=== PATIENT | female | born 1970 | race Caucasian/White ===

== ENCOUNTER 2019-11-27 07:24 | Day surgery (SDC) | payer OTHER, SELFPAY ==
--- NOTE | 2019-11-24 11:53 | HO.ANESPROP2 ---
HPI - Anesthesia Eval Consult details Narrative: 49yo F for LEFT hammer toe PMFSH Past Medical History Medical History Asthma Back pain GERD (gastroesophageal reflux disease) HTN (hypertension) Sleep apnea Urinary problem Surgical History Surgical History H/O colonoscopy H/O lumbar discectomy Hx of cholecystectomy History of Problems with Anesthesia: Unobtainable Social History Social History Smoking Status: Former smoker Smoked in Last 30 Days: No Use of substances other than those prescribed or required for medical reasons: No Advance Directives Information Provided: No Recently lost weight without trying: No Narrative Narrative: PCP cleared 11/19/19 Meds Allergies Allergy/AdvReac Type Severity Reaction Status Date / Time No Known Allergies Allergy Verified 11/24/19 09:21 Home Medications Medication Instructions Recorded Confirmed Type albuterol sulfate 2 puff PO Q6H 11/24/19 11/24/19 History darifenacin 1 tab PO DAILY 11/24/19 11/24/19 History lisinopril 1 tab PO DAILY 11/24/19 11/24/19 History meloxicam 1 tab PO DAILY 11/24/19 11/24/19 History omeprazole 1 cap PO DAILY 11/24/19 11/24/19 History Exam Exam Date and Time: November 24, 2019 1153 Pertinent Lab Results Pertinent Lab Results: EKG = NSR, no acute changes (per note) CBC, PT/INR, and BMP all WNL 11/19/19 Assessment and Plan Assessment Anesthesia Assessment: Chart Reviewed (11/24/19 )
[2019-11-24 13:10] VITALS: BMI 38.0
--- NOTE | 2019-11-27 07:56 | P.CONAN_ITS ---
[facility] Past Medical History Medical History Asthma Back pain GERD (gastroesophageal reflux disease) HTN (hypertension) Sleep apnea Urinary problem Functional capacity: independent ambulation Family History Family history of problems with anesthesia: No Surgical History Surgical History H/O colonoscopy H/O lumbar discectomy Hx of cholecystectomy History of Problems with Anesthesia: No Social History Social History Smoking Status: Former smoker Smoked in Last 30 Days: No Use of substances other than those prescribed or required for medical reasons: No Advance Directives Information Provided: No Recently lost weight without trying: No Travel History History of recent travel: No Recent Travel in [facility] Within the Last 8 Weeks: No Recent Out of Country Travel Within the Last 8 Weeks: No Exposure or Possible Exposure to Illness During Travel: No History of Being in a Healthcare Facility as a Patient, Worker, or Visitor during Travel: No Medical Treatment Received for Symptoms/Illness Related to Travel: No Meds Allergies Allergy/AdvReac Type Severity Reaction Status Date / Time No Known Allergies Allergy Verified 11/24/19 09:21 Home Medications Medication Instructions Recorded Confirmed Type albuterol sulfate 2 puff PO Q6H 11/24/19 11/24/19 History darifenacin 1 tab PO DAILY 11/24/19 11/24/19 History lisinopril 1 tab PO DAILY 11/24/19 11/24/19 History meloxicam 1 tab PO DAILY 11/24/19 11/24/19 History omeprazole 1 cap PO DAILY 11/24/19 11/24/19 History Exam Exam Date and Time: November 27, 2019 0756 Height,Weight and Vital Signs: Vital Signs Temp Pulse Resp BP Pulse Ox 11/27/19 08:11 97.7 F 114 H 16 134/80 95 Height 5 ft 3 in Weight 97.522 kg Airway Mallampati Class: II TM Dist: >3cm Neck ROM: Full Loose/Missing/Broken Teeth: No Heart: RRR Lungs: CTAB Assessment and Plan Assessment Anesthesia Assessment: Anesthesia Plan Discussed and Consent Obtained Final Anesthetic Review NPO: Yes Intake Type: Clears Intake Timing: Greater than 8 hours and Solids Intake Timing: Greater than 8 hours ASA Class: III Final Preanesthetic Review: No Changes in Pt Med Stat, Meds & Allergies Reviewed, Consent Obtained/Reviewed, Med/Surg/Anes Hx Reviewed and Anes Risks/Benef Reviewed Patient Risk: Intermediate Procedure Risk: Low Anesthetic Plan Anesthetic Plan: MAC: Disposition: Standard PACU
[2019-11-27] MEDS: Lactated Ringers 1,000 ML 100 ML IVCONT (08:06)
[2019-11-27 08:11] VITALS: BP 134/80; PULSE 114; RESP 16; TEMP 36.5; O2SAT 95
[2019-11-27] MEDS: ceFAZolin Sodium/Dextrose,Iso 2 GM/50 ML PIGGYBACK IV (09:20)
[2019-11-27 11:11] VITALS: BP 111/76; PULSE 95; RESP 16; TEMP 36.5; O2SAT 95
[2019-11-27 11:16] VITALS: BP 124/82; PULSE 84; RESP 16; O2SAT 99
--- NOTE | 2019-11-27 11:53 | HO.POSTANES ---
Post Anesthesia Evaluation Post Anesthesia Evaluation Vital Signs: Vital Signs 11/27/19 11:58 97.7 87 16 136/95 99% Temp Pulse Resp BP Pulse Ox 11/27/19 11:16 84 16 124/82 99 11/27/19 11:11 97.7 F 95 16 111/76 95 11/27/19 08:11 97.7 F 114 H 16 134/80 95 Anesthesia: Monitored Mental Status: Awake Pain Control: Satisfactory Nausea/Vomiting: None Hydration: Adequate Anesthesia-Related Issues: No Anes. Related Issues
--- NOTE | 2019-11-27 21:52 | OP_ITS ---
SURGEON: Nimco Handley DPM PREOPERATIVE DIAGNOSIS: 1. Hallus Valgus left foot, 2. Hammertoe left 2nd digit POSTOPERATIVE DIAGNOSIS: Same PROCEDURE PERFORMED: 1. Left foot Lapidus bunionectomy. 2. Hammertoe repair, left 2nd toe. ESTIMATED BLOOD LOSS: Less than 5 cc. COMPLICATIONS: None. ANESTHESIA: Monitored anesthetic care with local consisting preoperatively of a 24 mL of 2% lidocaine plain and 0.5% Marcaine plain. SPECIMENS: Bone PREOPERATIVE DIAGNOSES: 1. Hallux abductovalgus deformity, left foot. 2. Hammertoe deformity, 2nd digit, left foot. POSTOPERATIVE DIAGNOSES: 1. Hallux abductovalgus deformity, left foot. 2. Hammertoe deformity, 2nd digit, left foot. [employer]CH[employer] SURGEON: Talisha Soria DPM. HEMOSTASIS: Pneumatic ankle tourniquet set at 225 mmHg for 66 minutes. INDICATIONS FOR SURGERY: The patient had painful bunion deformity noted to the left foot with hammertoe deformity of the 2nd digit. The patient has failed conservative treatment for bunion and hammertoe and states she is ready for surgical intervention. The above-mentioned surgery was discussed in detail with the patient including risks, benefits, and possible complications. No guarantees were given, and written and oral informed consent were obtained. PROCEDURE IN DETAIL: The patient was brought to the operating room, placed on the operating table in the supine position. Following IV sedation, the left foot was scrubbed, prepped, and draped in a sterile manner. Attention was directed to the left foot. After exsanguination, the pneumatic ankle tourniquet was inflated. Prior to the start of anesthesia, 2 g of cefazolin was administered. Attention was directed to the 1st metatarsophalangeal joint and 1st metatarsal cuneiform joint. A long incision was made extending from the 1st metatarsocuneiform joint distally to the 1st metatarsophalangeal joint. The incision was deepened down to subcutaneous tissue. Great care was taken to retract all vital, neural, and vascular structures and all bleeders were cauterized as necessary. An incision was made medial and parallel to the extensor tendons at the level of the 1st metatarsal cuneiform joint. The soft tissues were freed about the bone, exposing the joint. Two guide pins were placed and an extensor separator similar to a Stefania was placed to distract the joint to expose the cartilaginous surfaces and using a [place] as well as a curette, the cartilaginous surfaces were removed in their entirety from the head of the distal aspect of the cuneiform joint and the base of the first metatarsal. The joint was then fenestrated with a guidewire to healthy bleeding bone. Using a sagittal saw, the remaining lateral bone was resected of the 1st cuneiform joint and feathered until there was complete closure of the 1st metatarsal cuneiform joint. Attention was then directed distally to the 1st metatarsal head where a lateral release was performed via the 1st interspace. The deep transverse intermetatarsal ligament was transected to stabilize sesamoidal ligament and the head of the adductor tendon allowing the head of the 1st metatarsal just into a more corrected position. The medial eminence was then resected from the 1st metatarsal head and passed from the operative site. Attention was directed back to the 1st metatarsal cuneiform joint. The bunion deformity was reduced in a triplane correction and temporarily held in place with a K-wire. The distractor was removed as well as the guide pins for it and a [facility] plate was placed. The following screws were placed, 2 distal screws, 1 locking, 1 nonlocking, both 14 mm; an interfrag screw approximately 38 mm was placed across the fusion site, and 2 proximal screws were placed, 120 mm locking and 114 mm nonlocking screw. All guidewires were removed. The wound was irrigated with copious amounts of normal sterile saline. The capsular structures were then reapproximated with 4-0 Vicryl in a continuous running fashion. A piece of AmnioFix was placed extracapsular, and the skin was approximated with 4-0 Monocryl in a continuous running fashion and 4-0 nylon in an interrupted suture technique. Attention was then directed to the 2nd toe where incision was made overlying the PIP joint. The incision was deepened down to subcutaneous tissue. Great care was taken to retract vital and neurovascular structures. All bleeders were cauterized as necessary. The extensor tendon was transected, and the soft tissues were freed about the head of the proximal phalanx. The head of the proximal phalanx was then resected with prior segmentation and passed from the operative site. The wound was irrigated with copious amounts of normal sterile saline. The extensor tendon was reapproximated with 4-0 Vicryl and interrupted suture technique. The skin was reapproximated with 4-0 nylon in a continuous running fashion. A postoperative injection of 5 mL of 0.5% Marcaine plain and 1 mL of dexamethasone was administered to the left foot. The incisions were then dressed with Steri-Strips, Xeroform, Betadine-soaked gauze, 4x4s, fluffs, Kerlix, cast padding, and an José Luis bandage. Pneumatic ankle tourniquet was deflated and prompt capillary refill was noted to all 5 digits. The patient tolerated procedure and anesthesia well. The patient was transferred to the recovery room with vital signs stable and vascular status at preoperative levels. Following a period of postoperative recovery, the patient will be discharged home with written and oral postop instructions. The patient will be nonweightbearing to the left foot and is to follow up in my office for all postoperative followup care. The patient has been given Vicodin for postoperative pain management and is allowed to take Tylenol or Motrin as needed for pain. Nimco Handley DPM LP/ALAYNA / [id number] FUNMILAYO
== END 2019-11-27 12:31 | disposition home or self-care (01) ==
PROVIDERS: Podiatrist; PCP Internal Medicine; Visit Provider Anesthesiology
PROC: (CPT 28292; principal; 2019-11-27 09:00)
DX: M20.12 Hallux valgus (acquired), left foot (principal); M21.612 Bunion of left foot; M20.42 Other hammer toe(s) (acquired), left foot; I10 Essential (primary) hypertension; G47.33 Obstructive sleep apnea (adult) (pediatric); J45.909 Unspecified asthma, uncomplicated; Z90.49 Acquired absence of other specified parts of digestive tract; Z79.899 Other long term (current) drug therapy; Z87.891 Personal history of nicotine dependence
CPT/HCPCS: 28297; 28298; 28285; 88304; 88311; C1713; J0690; J1100; J2250; J3010